=== PATIENT | male | born 1950 | race Two or more races ===

== ENCOUNTER 2017-11-04 05:20 | Day surgery (SDC) | payer OTHER ==
[~2017-11-04 05:20] MED LIST: CORED PO; EPLERENONE25 MG PO; FORTAMET1000 MG PO; GLUCOTROL XL5 MG PO; LOSARTAN-HCTZ1 EAC1 PO; NORVASC5 MG PO; XARELTO PO; ZOCOR20 MG PO
[2017-11-04] MEDS ORDERED: PERCOCET 5-3251 EACH PO (10:16)
[2017-11-04] MEDS ORDERED: RECTICARE30 GM TOP (10:16)
== END 2017-11-04 14:10 | disposition home or self-care (01) ==
LOC: CIR.AMB 05:20
DX: K60.3 Anal fistula (principal)